=== PATIENT | male | born 1945 | race Hispanic/Latino ===

== ENCOUNTER 2018-01-23 09:32 | Inpatient (IN) | payer MEDICARE ==
[~2018-01-23] VITALS: Ht 172.7 cm; Wt 76.0 kg
[2018-01-23] MEDS ORDERED: IOPAMIDOL-370 75 ML VIAL IV ONE (10:41)
[2018-01-23] MEDS ORDERED: DIATR MEGLU/DIATRIZOATE SODIUM 30 ML BOTTLE ONE (10:51)
[2018-01-23] MEDS ORDERED: SODIUM CHLORIDE 0.9% 1000ML 1,000 ML IV ONE (10:53)
[2018-01-23] MEDS ORDERED: ONDANSETRON HCL MDV 20ML 2 MG/ML VIAL ONE (10:54)
[2018-01-23] MEDS ORDERED: MORPHINE SULFATE 4 MG/1ML SYG ONE (10:54)
[2018-01-23 10:57] LABS: BASOPHILS % (AUTO) 0.1 % (0.0-5.0); EOSINOPHILS % (AUTO) 0.2 % (0.0-8.0); LYMPHOCYTES % (AUTO) 17.6 % (21.0-51.0); MEAN CORPUSCULAR HEMOGLOBIN 31.1 pg (27.0-33.0); MEAN CORPUSCULAR HGB CONC 34.4 g/dL (32.0-36.0); MEAN CORPUSCULAR VOLUME 90.3 fL (79-99); NEUTROPHILS % (AUTO) 77.1 % (40.0-77.0); NUCLEATED RED BLOOD CELLS 0.1 % (0.0-0.19); PLATELET COUNT (AUTO) 187 K/uL (130-400); RED BLOOD CELL COUNT(AUTO) 4.43 MIL/uL (4.50-6.20); RED CELL DISTRIBUTION WIDTH 14.2 % (11.0-15.5); WHITE BLOOD COUNT (AUTO) 7.2 K/uL (4.8-10.8)
[2018-01-23 11:17] LABS: ALBUMIN 2.9 g/dL (3.5-5.0); BILIRUBIN,TOTAL 0.4 mg/dL (0.2-1.0); CREATININE 0.9 mg/dL (0.5-1.5); TOTAL PROTEIN, SERUM 5.8 g/dL (6.0-8.3)
[2018-01-23 11:20] LABS: POTASSIUM 2.6 mmol/L (3.5-5.1)
[2018-01-23 11:25] LABS: INR 0.96 (0.85-1.15); PARTIAL THROMBOPLASTIN TIME 23.6 SEC (26.3-35.5); PROTHROMBIN TIME 10.1 SEC (9.6-11.6)
[2018-01-23] MEDS ORDERED: POTASSIUM CHLORIDE 20 MEQ ERTAB PO ONE (11:29)
[2018-01-23 13:19] LABS: APPEARANCE,URINE SL CLOUDY (CLEAR); BILIRUBIN,URINE NEGATIVE (NEGATIVE); COLOR,URINE YELLOW (YELLOW); GLUCOSE, URINE (UA) NEGATIVE (NEGATIVE); KETONES,URINE NEGATIVE (NEGATIVE); LEUKOCYTE ESTERASE ,URINE TRACE (NEGATIVE); NITRATE,URINE NEGATIVE (NEGATIVE); OCCULT BLOOD,URINE NEGATIVE (NEGATIVE); PROTEIN,URINE NEGATIVE (NEGATIVE); UROBILINOGEN,URINE 0.2 mg/dL (0.2-1.0)
[2018-01-23 13:26] LABS: BACTERIA,URINE Many /HPF (None Seen); RBC,URINE 0-1 /HPF (0-1); SQUAMOUS EPITHELIAL CELL,UR Rare /HPF (0-2)
[2018-01-23] MEDS ORDERED: SODIUM CHLORIDE 0.9% 100 ML IV ONE (17:21)
[2018-01-23] MEDS ORDERED: MEROPENEM 500 MG VIAL ONE (17:21)
[2018-01-23 17:55] VITALS: BP 151/73
[2018-01-23] MEDS: MEROPENEM 500 MG VIAL IVP SCH (18:00)
[2018-01-23] MEDS ORDERED: MORPHINE SULFATE 2 MG/ML 1ML SYG IVP PRN (18:15)
[2018-01-23 20:00] VITALS: BP 132/73
[2018-01-24] VITALS: BP 131/62
[2018-01-24] MEDS: MEROPENEM 500 MG VIAL IVP SCH ×3 (01:59→17:45)
[2018-01-24 04:00] VITALS: BP 125/63
[2018-01-24 05:22] LABS: BASOPHILS % (AUTO) 0.1 % (0.0-5.0); EOSINOPHILS % (AUTO) 1.2 % (0.0-8.0); HEMATOCRIT 38.2 % (42-54); LYMPHOCYTES % (AUTO) 39.8 % (21.0-51.0); MEAN CORPUSCULAR HEMOGLOBIN 32.5 pg (27.0-33.0); MEAN CORPUSCULAR HGB CONC 35.7 g/dL (32.0-36.0); MEAN CORPUSCULAR VOLUME 90.9 fL (79-99); MONOCYTES % (AUTO) 7.1 % (3.0-13.0); NEUTROPHILS % (AUTO) 51.8 % (40.0-77.0); NUCLEATED RED BLOOD CELLS 0.1 % (0.0-0.19); PLATELET COUNT (AUTO) 177 K/uL (130-400); RED CELL DISTRIBUTION WIDTH 14.4 % (11.0-15.5); WHITE BLOOD COUNT (AUTO) 7.4 K/uL (4.8-10.8)
[2018-01-24 05:44] LABS: ALBUMIN 2.5 g/dL (3.5-5.0); BILIRUBIN,TOTAL 0.6 mg/dL (0.2-1.0); CREATININE 0.9 mg/dL (0.5-1.5); POTASSIUM 3.3 mmol/L (3.5-5.1); TOTAL PROTEIN, SERUM 5.3 g/dL (6.0-8.3)
[2018-01-24 07:59] VITALS: BP 119/72
[2018-01-24 11:30] VITALS: BP 153/84
[2018-01-24] MEDS ORDERED: FURO20TA6 PO (11:31)
[2018-01-24] MEDS ORDERED: METF850T2 PO (11:31)
[2018-01-24] MEDS ORDERED: K1015L PO (11:31)
[2018-01-24] MEDS ORDERED: AMLO10TA2 PO (11:31)
[2018-01-24] MEDS ORDERED: TRAM50TA4 PO (11:31)
[2018-01-24] MEDS ORDERED: GLIM4TAB3 PO (11:31)
[2018-01-24] MEDS ORDERED: LISI-613 PO (11:31)
[2018-01-24] MEDS ORDERED: DEXTROSE 50%-WATER 50 ML DISP.SYRIN IV PRN (12:30)
[2018-01-24] MEDS ORDERED: GLUCAGON 1MG KIT 1 MG ML IM PRN (12:30)
[2018-01-24 16:00] VITALS: BP 152/86
[2018-01-24] MEDS: INSULIN HUMULIN R 100 UNIT/ML 3ML SQ SCH ×2 (16:30→21:00)
[2018-01-24 19:45] VITALS: BP 128/78
[2018-01-25] VITALS (26 sets, daily range): BP systolic 113–147; BP diastolic 63–99
[2018-01-25] MEDS: MEROPENEM 500 MG VIAL IVP SCH ×2 (01:56→10:23)
[2018-01-25 05:01] LABS: HEMATOCRIT 43.3 % (42-54); MEAN CORPUSCULAR HEMOGLOBIN 31.5 pg (27.0-33.0); MEAN CORPUSCULAR VOLUME 90.2 fL (79-99); NUCLEATED RED BLOOD CELLS 0.1 % (0.0-0.19); PLATELET COUNT (AUTO) 207 K/uL (130-400); RED CELL DISTRIBUTION WIDTH 14.1 % (11.0-15.5); WHITE BLOOD COUNT (AUTO) 7.1 K/uL (4.8-10.8)
[2018-01-25 05:09] LABS: INR 1.01 (0.85-1.15); PROTHROMBIN TIME 10.6 SEC (9.6-11.6)
[2018-01-25 05:16] LABS: POTASSIUM 3.3 mmol/L (3.5-5.1)
[2018-01-25] MEDS: INSULIN HUMULIN R 100 UNIT/ML 3ML SQ SCH ×4 (05:48→21:24)
[2018-01-25] MEDS ORDERED: MORPHINE SULFATE 4 MG/1ML SYG ONE (07:44)
[2018-01-25] MEDS ORDERED: GLYCOPYRROLATE 0.2 MG/ML 5 ML VIAL ONE ×2 (09:31→11:43)
[2018-01-25] MEDS ORDERED: DEXAMETHASONE SOD PHOSPHATE 10MG/ML 1ML VIAL ONE (09:32)
[2018-01-25] MEDS ORDERED: LIDOCAINE PF 2% 5ML ABBOJECT ONE (09:32)
[2018-01-25] MEDS ORDERED: MIDAZOLAM HCL 1 MG/ML 2ML VIAL ONE (09:32)
[2018-01-25] MEDS ORDERED: FENTANYL CITRATE PF 50 MCG/1 ML 2ML VIAL ONE ×2 (09:33→11:43)
[2018-01-25] MEDS ORDERED: PROPOFOL 10 MG/ML 20ML VIAL IV ONE (09:33)
[2018-01-25] MEDS ORDERED: CALDOLOR 800MG+NS 250ML 250 ML IV ONE (11:40)
[2018-01-25] MEDS ORDERED: BUPIVACAINE/EPI/PF 0.25% 30ML VIAL IJ ONE (11:42)
[2018-01-25] MEDS ORDERED: NEOSTIGMINE METHYLSULFATE 1MG/ML IV ONE (11:42)
[2018-01-25] MEDS ORDERED: ROCURONIUM BROMIDE 10MG/1ML 5ML VL ONE ×2 (11:43→13:20)
[2018-01-25] MEDS ORDERED: SUCCINYLCHOLINE CHLORIDE 20 MG/ML 10 ML VIAL ONE (11:43)
[2018-01-25] MEDS ORDERED: ARTIFICIAL TEARS 3.5 GM OINTMENT ONE (13:20)
[2018-01-25] MEDS ORDERED: MEPERIDINE-PF 25 MG/ML SYG ONE (13:58)
[2018-01-25] MEDS ORDERED: TRAMADOL HCL 50 MG TABLET PO PRN (15:00)
[2018-01-25] MEDS ORDERED: ACETAMINOPHEN 325 MG TAB PO PRN (15:00)
[2018-01-26 00:15] VITALS: BP 156/85
[2018-01-26 04:00] VITALS: BP 153/91
[2018-01-26 05:18] LABS: BASOPHILS % (AUTO) 0.1 % (0.0-5.0); HEMATOCRIT 42.9 % (42-54); LYMPHOCYTES % (AUTO) 8.1 % (21.0-51.0); MEAN CORPUSCULAR HEMOGLOBIN 31.6 pg (27.0-33.0); MEAN CORPUSCULAR HGB CONC 35.2 g/dL (32.0-36.0); MEAN CORPUSCULAR VOLUME 89.9 fL (79-99); MONOCYTES % (AUTO) 6.8 % (3.0-13.0); PLATELET COUNT (AUTO) 223 K/uL (130-400); RED BLOOD CELL COUNT(AUTO) 4.77 MIL/uL (4.50-6.20); RED CELL DISTRIBUTION WIDTH 14.4 % (11.0-15.5); WHITE BLOOD COUNT (AUTO) 12.5 K/uL (4.8-10.8)
[2018-01-26 05:27] LABS: CREATININE 1.2 mg/dL (0.5-1.5); POTASSIUM 3.7 mmol/L (3.5-5.1)
[2018-01-26] MEDS: INSULIN HUMULIN R 100 UNIT/ML 3ML SQ SCH ×4 (07:05→20:36)
[2018-01-26 08:08] VITALS: BP 153/88
[2018-01-26 11:51] VITALS: BP 130/82
[2018-01-26 16:25] VITALS: BP 169/94
[2018-01-26 19:10] VITALS: BP 125/77
[2018-01-27 00:02] VITALS: BP 132/80
[2018-01-27 05:04] LABS: BASOPHILS % (AUTO) 0.4 % (0.0-5.0); HEMATOCRIT 37.8 % (42-54); LYMPHOCYTES % (AUTO) 8.9 % (21.0-51.0); MEAN CORPUSCULAR HEMOGLOBIN 31.2 pg (27.0-33.0); MEAN CORPUSCULAR HGB CONC 34.7 g/dL (32.0-36.0); MEAN CORPUSCULAR VOLUME 90.1 fL (79-99); MONOCYTES % (AUTO) 7.6 % (3.0-13.0); NEUTROPHILS % (AUTO) 83.1 % (40.0-77.0); PLATELET COUNT (AUTO) 183 K/uL (130-400); RED BLOOD CELL COUNT(AUTO) 4.19 MIL/uL (4.50-6.20); RED CELL DISTRIBUTION WIDTH 14.6 % (11.0-15.5)
[2018-01-27 05:36] LABS: CREATININE 0.9 mg/dL (0.5-1.5); POTASSIUM 3.6 mmol/L (3.5-5.1)
[2018-01-27] MEDS: INSULIN HUMULIN R 100 UNIT/ML 3ML SQ SCH (05:59)
[2018-01-27 07:42] VITALS: BP 128/79
[2018-01-27 11:18] VITALS: BP 157/90
== END 2018-01-27 12:15 | disposition home or self-care (01) | DRG 351 ==
LOC: EDH 09:32 → EDHIP 16:20 → 4CH 17:46
PROVIDERS: ADMIT Internal Medicine Nephrology; ATTEND Internal Medicine Nephrology
PROC: 0YU50JZ Supplement Right Inguinal Region with Synthetic Substitute, Open Approach (ICD-10-PCS; principal; 2018-01-25 12:24)
DX: K40.30 Unilateral inguinal hernia, with obstruction, without gangrene, not specified as recurrent (principal); E44.0 Moderate protein-calorie malnutrition; E11.9 Type 2 diabetes mellitus without complications; D72.829 Elevated white blood cell count, unspecified; E78.5 Hyperlipidemia, unspecified; I10 Essential (primary) hypertension; Z82.49 Family history of ischemic heart disease and other diseases of the circulatory system; Z83.3 Family history of diabetes mellitus; Z86.73 Personal history of transient ischemic attack (TIA), and cerebral infarction without residual deficits; Z28.21 Immunization not carried out because of patient refusal
CPT/HCPCS: 36415; 74177; 80048; 80053; 81001; 82948; 83690; 85025; 85027; 85610; 85730; 88302; A4218; A4344; C1781; J0330; J1100; J1741; J1815; J2001; J2175; J2185; J2250; J2270; J2704; J2710; J3010; J3490; J7030; Q9963; Q9967

== ENCOUNTER 2021-02-06 11:46 | Emergency (ER) | payer MEDICARE ==
[~2021-02-06 11:46] MED LIST: AMLO-258 PO; GLIM4TAB36 PO; LISI20TA24 PO; METF-445 PO; METR250T PO; OSEL30CA PO; POTA20LI PO; TRAM50TA4 PO
[2021-02-06] MEDS ORDERED: INSULIN HUMULIN R 100 UNIT/ML 3ML ONE (12:14)
[2021-02-06] MEDS ORDERED: SODIUM CHLORIDE 0.9% 1000ML 1,000 ML IV ONE (12:14)
[2021-02-06 12:21] LABS: APPEARANCE,URINE CLEAR (CLEAR); BILIRUBIN,URINE NEGATIVE (NEGATIVE); COLOR,URINE YELLOW (YELLOW); GLUCOSE, URINE (UA) >=1000 mg/dL (NEGATIVE); KETONES,URINE NEGATIVE (NEGATIVE); LEUKOCYTE ESTERASE ,URINE TRACE (NEGATIVE); NITRATE,URINE NEGATIVE (NEGATIVE); OCCULT BLOOD,URINE MODERATE (NEGATIVE); PROTEIN,URINE NEGATIVE (NEGATIVE); UROBILINOGEN,URINE 0.2 mg/dL (0.2-1.0)
[2021-02-06 12:24] LABS: BASOPHILS % (AUTO) 0.1 % (0.0-5.0); EOSINOPHILS % (AUTO) 0.1 % (0.0-8.0); HEMATOCRIT 48.1 % (42-54); LYMPHOCYTES % (AUTO) 4.9 % (21.0-51.0); MEAN CORPUSCULAR HEMOGLOBIN 29.8 pg (27.0-33.0); MEAN CORPUSCULAR HGB CONC 33.9 g/dL (32.0-36.0); MEAN CORPUSCULAR VOLUME 87.9 fL (79-99); NEUTROPHILS % (AUTO) 87.4 % (40.0-77.0); PLATELET COUNT (AUTO) 221 K/uL (130-400); RED BLOOD CELL COUNT(AUTO) 5.47 MIL/uL (4.50-6.20); RED CELL DISTRIBUTION WIDTH 13.2 % (11.0-15.5); WHITE BLOOD COUNT (AUTO) 13.7 K/uL (4.8-10.8)
[2021-02-06 12:54] LABS: ALBUMIN 2.4 g/dL (3.5-5.0); BILIRUBIN,TOTAL 0.7 mg/dL (0.2-1.0); CREATININE 1.3 mg/dL (0.5-1.5); POTASSIUM 3.9 mmol/L (3.5-5.1); TOTAL PROTEIN, SERUM 5.7 g/dL (6.0-8.3)
[2021-02-06 13:03] LABS: BACTERIA,URINE Moderate /HPF (None Seen); RBC,URINE 0-1 /HPF (0-1); SQUAMOUS EPITHELIAL CELL,UR Rare /HPF (0-2); WBC,URINE 26-50 /HPF (0-1)
== END 2021-02-06 14:02 | disposition home or self-care (01) ==
LOC: EDH 11:46
DX: R35.8 Other polyuria (principal); E11.65 Type 2 diabetes mellitus with hyperglycemia; I10 Essential (primary) hypertension; E78.5 Hyperlipidemia, unspecified; Z72.0 Tobacco use
CPT/HCPCS: 36415; 80053; 81001; 82948 ×2; 85025; 87077; 87088; 87186; 96361; 96374; 99283; J1815; J7030

== ENCOUNTER 2021-02-15 14:33 | Inpatient (IN) | payer MEDICARE ==
[~2021-02-15] VITALS: Ht 167.6 cm; Wt 94.8 kg
[2021-02-15] MEDS: 0.9%NACL 1000ML 1,000 ML IV SCH (03:00)
[2021-02-15] MEDS ORDERED: CEFTRIAXONE 1G VIAL ONE (15:45)
[2021-02-15] MEDS ORDERED: 0.9% NACL 500ML IV.SOLN 500 ML IV ONE (15:45)
[2021-02-15 15:52] LABS: APPEARANCE,URINE CLOUDY (CLEAR); BILIRUBIN,URINE NEGATIVE (NEGATIVE); COLOR,URINE YELLOW (YELLOW); GLUCOSE, URINE (UA) NEGATIVE (NEGATIVE); KETONES,URINE NEGATIVE (NEGATIVE); LEUKOCYTE ESTERASE ,URINE MODERATE (NEGATIVE); NITRATE,URINE NEGATIVE (NEGATIVE); OCCULT BLOOD,URINE LARGE (NEGATIVE); PH,URINE >=9.0 (5.0-8.0); PROTEIN,URINE TRACE mg/dL (NEGATIVE)
[2021-02-15 15:54] LABS: BASOPHILS % (AUTO) 0.3 % (0.0-5.0); EOSINOPHILS % (AUTO) 2.8 % (0.0-8.0); HEMATOCRIT 46.6 % (42-54); LYMPHOCYTES % (AUTO) 2.5 % (21.0-51.0); MEAN CORPUSCULAR HEMOGLOBIN 30.6 pg (27.0-33.0); MEAN CORPUSCULAR HGB CONC 33.3 g/dL (32.0-36.0); MEAN CORPUSCULAR VOLUME 91.9 fL (79-99); MONOCYTES % (AUTO) 0.9 % (3.0-13.0); NEUTROPHILS % (AUTO) 92.5 % (40.0-77.0); PLATELET COUNT (AUTO) 82 K/uL (130-400); RED BLOOD CELL COUNT(AUTO) 5.07 MIL/uL (4.50-6.20); RED CELL DISTRIBUTION WIDTH 14.6 % (11.0-15.5); WHITE BLOOD COUNT (AUTO) 12.8 K/uL (4.8-10.8)
[2021-02-15 16:04] LABS: INR 1.02 (0.85-1.15); PROTHROMBIN TIME 11.1 SEC (9.6-11.6)
[2021-02-15 16:05] LABS: PARTIAL THROMBOPLASTIN TIME 23.7 SEC (26.3-35.5)
[2021-02-15 16:06] LABS: AMORPHOUS SEDIMENT,UR Few /LPF (None Seen); BACTERIA,URINE Moderate /HPF (None Seen); SQUAMOUS EPITHELIAL CELL,UR Rare /HPF (0-2)
[2021-02-15 16:08] LABS: CARBON DIOXIDE 27 mmol/L (21-32); CHLORIDE 102 mmol/L (101-111); CREATININE 1.5 mg/dL (0.5-1.5); GLOMERULAR FILTR. RATE CALC 48 mL/min (>60); GLUCOSE,RANDOM 156 mg/dL (70-105); POTASSIUM 4.5 mmol/L (3.5-5.1); SODIUM SERUM 139 mmol/L (136-145); UREA NITROGEN, BLOOD 25 mg/dL (7-18)
[2021-02-15] MEDS ORDERED: 0.9%NACL 1000ML 1,000 ML IV ONE (16:17)
[2021-02-15] MEDS ORDERED: AZITHROMYCIN 500MG+NS 250ML 250 ML IV ONE (16:18)
[2021-02-15 16:20] LABS: ALANINE AMINOTRANSFERASE 41 U/L (12-78); ALBUMIN 2.5 g/dL (3.5-5.0); ASPARTATE AMINOTRANSFERASE 16 U/L (10-37); B-TYPE NATRIURETIC PEPTIDE 353 pg/mL (0-100); BILIRUBIN,TOTAL 1.1 mg/dL (0.2-1.0); CREATINE KINASE, TOTAL 22 U/L (21-232); MYOGLOBIN 32 ng/mL (10-92); TOTAL PROTEIN, SERUM 5.9 g/dL (6.0-8.3); TROPONIN I < 0.04 ng/mL (0.00-0.06)
[2021-02-15] MEDS ORDERED: ACETAMINOPHEN 650 MG/20.3 ML UDCUP ONE (17:04)
[2021-02-15] MEDS ORDERED: LACTULOSE 20 GM/30 ML UDCUP PO PRN (18:45)
[2021-02-15] MEDS ORDERED: NITROGLYCERIN 0.4 MG SL TAB SL PRN (18:45)
[2021-02-15] MEDS ORDERED: BENZONATATE 100 MG CAPSULE PO PRN (18:45)
[2021-02-15] MEDS ORDERED: ONDANSETRON 4MG INJ IV PRN (18:45)
[2021-02-15] MEDS ORDERED: ACETAMINOPHEN 325 MG TAB PO PRN ×2 (18:45)
[2021-02-15] MEDS ORDERED: DEXTROSE 50%-WATER 50 ML DISP.SYRIN IV PRN (19:00)
[2021-02-15] MEDS ORDERED: GLUCAGON 1MG KIT 1 MG ML IM PRN (19:00)
[2021-02-15] MEDS ORDERED: LABETALOL 20MG SYG IV PRN (19:00)
[2021-02-15] MEDS: IPRATROPIUM/ALBUTEROL SULFATE 3 ML SOLUTION IH SCH (21:43)
[2021-02-15] MEDS ORDERED: SOLU-MEDROL 40MG VIAL ONE (22:15)
[2021-02-15] MEDS ORDERED: NOREPINEPHRIN 4MG/NS 250ML 250 ML IV ONE (22:17)
[2021-02-16] VITALS (33 sets, daily range): BP systolic 95–147; BP diastolic 52–92
[2021-02-16] MEDS: IPRATROPIUM/ALBUTEROL SULFATE 3 ML SOLUTION IH SCH ×4 (02:00→18:21)
[2021-02-16] MEDS: 0.9%NACL 1000ML 1,000 ML IV SCH ×2 (05:12→13:09)
[2021-02-16] MEDS: INSULIN HUMULIN R 100 UNIT/ML 3ML SQ SCH ×5 (05:20→21:40)
[2021-02-16] MEDS: SOLU-MEDROL 125MG VIAL IV SCH ×3 (05:20→06:29)
[2021-02-16] MEDS: FAMOTIDINE 20MG VIAL IV SCH (08:40)
[2021-02-16] MEDS ORDERED: ENOXAPARIN SODIUM 40 MG/0.4 ML SYRINGE SQ SCH (09:00)
[2021-02-16] MEDS ORDERED: RISPERIDONE 0.5 MG TABLET PO SCH (09:00)
[2021-02-16 10:01] LABS: HEMATOCRIT 41.8 % (42-54); MEAN CORPUSCULAR HEMOGLOBIN 30.5 pg (27.0-33.0); MEAN CORPUSCULAR HGB CONC 33.7 g/dL (32.0-36.0); MEAN CORPUSCULAR VOLUME 90.3 fL (79-99); PLATELET COUNT (AUTO) 42 K/uL (130-400); RED BLOOD CELL COUNT(AUTO) 4.63 MIL/uL (4.50-6.20); RED CELL DISTRIBUTION WIDTH 14.7 % (11.0-15.5); WHITE BLOOD COUNT (AUTO) 23.7 K/uL (4.8-10.8)
[2021-02-16 10:08] LABS: CREATININE 1.4 mg/dL (0.5-1.5); POTASSIUM 4.4 mmol/L (3.5-5.1)
[2021-02-16] MEDS ORDERED: SOLU-MEDROL 125MG VIAL IV SCH (12:45)
[2021-02-16] MEDS: SOLU-MEDROL 40MG VIAL IVP SCH ×2 (13:45→19:56)
[2021-02-16] MEDS: CEFTRIAXONE 1G VIAL IV SCH (14:35)
[2021-02-16] MEDS: ZIPRASIDONE MESYLATE 20 MG/VIAL IM PRN ×2 (14:36→21:29)
[2021-02-16] MEDS ORDERED: CEFTRIAXONE 1G VIAL IV SCH (15:00)
[2021-02-16] MEDS ORDERED: AZITHROMYCIN 500MG+NS 250ML 250 ML IV SCH (16:00)
[2021-02-16] MEDS ORDERED: MEMANTINE HCL 5 MG TABLET PO SCH (16:30)
[2021-02-16] MEDS: BUSPIRONE HCL 5 MG TABLET PO SCH (19:57)
[2021-02-16] MEDS: RISPERIDONE 0.5 MG TABLET PO PRN (19:57)
[2021-02-16] MEDS: DONEPEZIL HCL 5 MG TAB PO SCH (19:57)
[2021-02-16] MEDS: GUAIFENESIN-DM 200/20 MG 10 ML PO PRN (21:57)
[2021-02-16] MEDS ORDERED: FUROSEMIDE 40MG VIAL IV SCH (23:45)
[2021-02-17] VITALS (10 sets, daily range): BP systolic 104–184; BP diastolic 59–100
[2021-02-17] MEDS: IPRATROPIUM/ALBUTEROL SULFATE 3 ML SOLUTION IH SCH ×4 (00:02→18:00)
[2021-02-17] MEDS: GUAIFENESIN-DM 200/20 MG 10 ML PO PRN (01:39)
[2021-02-17] MEDS: ZIPRASIDONE MESYLATE 20 MG/VIAL IM PRN ×3 (02:21→16:34)
[2021-02-17] MEDS: SOLU-MEDROL 40MG VIAL IVP SCH (02:22)
[2021-02-17 04:21] LABS: HEMATOCRIT 37.8 % (42-54); MEAN CORPUSCULAR HEMOGLOBIN 30.3 pg (27.0-33.0); MEAN CORPUSCULAR HGB CONC 34.7 g/dL (32.0-36.0); MEAN CORPUSCULAR VOLUME 87.5 fL (79-99); RED BLOOD CELL COUNT(AUTO) 4.32 MIL/uL (4.50-6.20); RED CELL DISTRIBUTION WIDTH 14.6 % (11.0-15.5); WHITE BLOOD COUNT (AUTO) 17.9 K/uL (4.8-10.8)
[2021-02-17 04:32] LABS: CREATININE 1.3 mg/dL (0.5-1.5); POTASSIUM 3.3 mmol/L (3.5-5.1)
[2021-02-17] MEDS: LIDOCAINE HCL 1% 20 ML VIAL INJ SCH (06:15)
[2021-02-17] MEDS ORDERED: POTASSIUM CHLORIDE 10MEQ/100ML 10 MEQ/100 ML ML IV SCH (06:15)
[2021-02-17] MEDS: FAMOTIDINE 20MG VIAL IV SCH (08:38)
[2021-02-17] MEDS: BUSPIRONE HCL 5 MG TABLET PO SCH ×2 (08:38→22:11)
[2021-02-17] MEDS: INSULIN HUMULIN R 100 UNIT/ML 3ML SQ SCH ×4 (08:40→22:20)
[2021-02-17] MEDS: CEFTRIAXONE 1G VIAL IV SCH (15:03)
[2021-02-17] MEDS ORDERED: INSULIN GLARGINE 100 UNITS/ML 10 ML VIAL SQ SCH (21:00)
[2021-02-17] MEDS: DONEPEZIL HCL 5 MG TAB PO SCH (22:11)
[2021-02-17] MEDS: HYDROXYZINE 25 MG TABLET PO SCH (22:11)
[2021-02-17] MEDS: RISPERIDONE 0.5 MG TABLET PO PRN (22:11)
[2021-02-17] MEDS: INSULIN GLARGINE 100 UNITS/ML 10 ML VIAL SQ SCH (22:22)
[2021-02-18] VITALS: BP 155/84
[2021-02-18 04:00] VITALS: BP 167/89
[2021-02-18] MEDS: ZIPRASIDONE MESYLATE 20 MG/VIAL IM PRN (04:39)
[2021-02-18 05:25] LABS: BASOPHILS % (AUTO) 0.3 % (0.0-5.0); EOSINOPHILS % (AUTO) 0.7 % (0.0-8.0); HEMATOCRIT 43.3 % (42-54); LYMPHOCYTES % (AUTO) 2.8 % (21.0-51.0); MEAN CORPUSCULAR HEMOGLOBIN 29.4 pg (27.0-33.0); MEAN CORPUSCULAR HGB CONC 33.7 g/dL (32.0-36.0); MEAN CORPUSCULAR VOLUME 87.3 fL (79-99); MONOCYTES % (AUTO) 3.6 % (3.0-13.0); NEUTROPHILS % (AUTO) 92.2 % (40.0-77.0); PLATELET COUNT (AUTO) 19 K/uL (130-400); RED BLOOD CELL COUNT(AUTO) 4.96 MIL/uL (4.50-6.20); RED CELL DISTRIBUTION WIDTH 14.4 % (11.0-15.5); WHITE BLOOD COUNT (AUTO) 17.7 K/uL (4.8-10.8)
[2021-02-18] MEDS: LIDOCAINE HCL 1% 20 ML VIAL INJ SCH (05:39)
[2021-02-18] MEDS: INSULIN HUMULIN R 100 UNIT/ML 3ML SQ SCH ×4 (05:39→21:52)
[2021-02-18 05:53] LABS: ALBUMIN 2.2 g/dL (3.5-5.0); BILIRUBIN,TOTAL 0.9 mg/dL (0.2-1.0); TOTAL PROTEIN, SERUM 5.7 g/dL (6.0-8.3)
[2021-02-18] MEDS: MEMANTINE HCL 5 MG TABLET PO SCH (09:07)
[2021-02-18] MEDS: PANTOPRAZOLE 40 MG TAB DR PO SCH (09:07)
[2021-02-18] MEDS: HYDROXYZINE 25 MG TABLET PO SCH ×2 (09:07→21:44)
[2021-02-18] MEDS: CITALOPRAM 20 MG TABLET PO SCH (09:07)
[2021-02-18] MEDS: KCL 20 MEQ ERTAB PO SCH (09:08)
[2021-02-18] MEDS: BUSPIRONE HCL 5 MG TABLET PO SCH ×3 (09:08→21:44)
[2021-02-18] MEDS: CEFTRIAXONE 1G VIAL IV SCH (14:44)
[2021-02-18 17:33] VITALS: BP 132/87
[2021-02-18 20:00] VITALS: BP 158/76
[2021-02-18 20:35] LABS: INR 1.1 (0.85-1.15); PROTHROMBIN TIME 11.9 SEC (9.6-11.6)
[2021-02-18 20:37] LABS: PARTIAL THROMBOPLASTIN TIME 24.5 SEC (26.3-35.5)
[2021-02-18] MEDS: DONEPEZIL HCL 5 MG TAB PO SCH (21:44)
[2021-02-18] MEDS: INSULIN GLARGINE 100 UNITS/ML 10 ML VIAL SQ SCH (21:51)
[2021-02-19] VITALS: BP 152/80
[2021-02-19 04:00] VITALS: BP 143/73
[2021-02-19] MEDS: LIDOCAINE HCL 1% 20 ML VIAL INJ SCH (04:53)
[2021-02-19] MEDS: INSULIN HUMULIN R 100 UNIT/ML 3ML SQ SCH ×4 (05:34→21:12)
[2021-02-19 05:57] LABS: HEMATOCRIT 38.9 % (42-54); MEAN CORPUSCULAR HEMOGLOBIN 29.2 pg (27.0-33.0); MEAN CORPUSCULAR HGB CONC 32.9 g/dL (32.0-36.0); MEAN CORPUSCULAR VOLUME 88.8 fL (79-99); RED BLOOD CELL COUNT(AUTO) 4.38 MIL/uL (4.50-6.20); RED CELL DISTRIBUTION WIDTH 14.2 % (11.0-15.5); WHITE BLOOD COUNT (AUTO) 7.8 K/uL (4.8-10.8)
[2021-02-19 06:07] LABS: CREATININE 0.8 mg/dL (0.5-1.5); POTASSIUM 3.1 mmol/L (3.5-5.1)
[2021-02-19] MEDS: KCL 20 MEQ ERTAB PO SCH ×2 (08:15→10:25)
[2021-02-19] MEDS: MEMANTINE HCL 5 MG TABLET PO SCH (09:06)
[2021-02-19] MEDS: CITALOPRAM 20 MG TABLET PO SCH (09:06)
[2021-02-19] MEDS: HYDROXYZINE 25 MG TABLET PO SCH ×2 (09:06→21:06)
[2021-02-19] MEDS: BUSPIRONE HCL 5 MG TABLET PO SCH ×3 (09:06→21:06)
[2021-02-19] MEDS: PANTOPRAZOLE 40 MG TAB DR PO SCH (09:07)
[2021-02-19 09:18] VITALS: BP 159/72
[2021-02-19 12:53] VITALS: BP 155/81
[2021-02-19] MEDS: CEFTRIAXONE 1G VIAL IV SCH (14:20)
[2021-02-19 17:38] VITALS: BP 164/75
[2021-02-19 20:00] VITALS: BP 172/92
[2021-02-19] MEDS: DONEPEZIL HCL 5 MG TAB PO SCH (21:06)
[2021-02-19] MEDS: INSULIN GLARGINE 100 UNITS/ML 10 ML VIAL SQ SCH (21:10)
[2021-02-20] VITALS (7 sets, daily range): BP systolic 134–165; BP diastolic 57–85
[2021-02-20 05:12] LABS: HEMATOCRIT 38.3 % (42-54); MEAN CORPUSCULAR HEMOGLOBIN 29.9 pg (27.0-33.0); MEAN CORPUSCULAR HGB CONC 34.5 g/dL (32.0-36.0); MEAN CORPUSCULAR VOLUME 86.7 fL (79-99); RED BLOOD CELL COUNT(AUTO) 4.42 MIL/uL (4.50-6.20); WHITE BLOOD COUNT (AUTO) 4.7 K/uL (4.8-10.8)
[2021-02-20 05:42] LABS: CREATININE 0.9 mg/dL (0.5-1.5); POTASSIUM 3.2 mmol/L (3.5-5.1)
[2021-02-20] MEDS: INSULIN HUMULIN R 100 UNIT/ML 3ML SQ SCH ×4 (06:01→20:42)
[2021-02-20] MEDS: LIDOCAINE HCL 1% 20 ML VIAL INJ SCH (06:01)
[2021-02-20] MEDS: KCL 20 MEQ ERTAB PO SCH (07:10)
[2021-02-20] MEDS: HYDROXYZINE 25 MG TABLET PO SCH ×2 (08:30→20:01)
[2021-02-20] MEDS: BUSPIRONE HCL 5 MG TABLET PO SCH ×3 (08:30→20:01)
[2021-02-20] MEDS: CITALOPRAM 20 MG TABLET PO SCH (08:30)
[2021-02-20] MEDS: MEMANTINE HCL 5 MG TABLET PO SCH (08:34)
[2021-02-20] MEDS: PANTOPRAZOLE 40 MG TAB DR PO SCH (08:35)
[2021-02-20] MEDS ORDERED: AMLODIPINE 5 MG TAB PO SCH (09:00)
[2021-02-20] MEDS ORDERED: IPRATROPIUM 0.5 MG/2.5 ML INH IH SCH (12:00)
[2021-02-20] MEDS ORDERED: IPRATROPIUM/ALBUTEROL SULFATE 3 ML SOLUTION IH PRN (12:45)
[2021-02-20] MEDS: CEFTRIAXONE 1G VIAL IV SCH (15:28)
[2021-02-20] MEDS ORDERED: BUDESONIDE 0.5 MG/2 ML INH IH SCH (18:00)
[2021-02-20] MEDS ORDERED: ATOR20TA65 PO (19:37)
[2021-02-20] MEDS ORDERED: AMLO-257 PO (19:37)
[2021-02-20] MEDS ORDERED: GABA-529 PO (19:37)
[2021-02-20] MEDS ORDERED: BUSP5TAB3 PO (19:37)
[2021-02-20] MEDS ORDERED: ALPR0.255 PO (19:37)
[2021-02-20] MEDS ORDERED: MEMA10TA11 PO (19:37)
[2021-02-20] MEDS ORDERED: MIRA25TA PO (19:37)
[2021-02-20] MEDS ORDERED: LISI30TA4 PO (19:37)
[2021-02-20] MEDS ORDERED: DONE5TAB33 PO (19:37)
[2021-02-20] MEDS: DONEPEZIL HCL 5 MG TAB PO SCH (20:01)
[2021-02-20] MEDS: INSULIN GLARGINE 100 UNITS/ML 10 ML VIAL SQ SCH (20:44)
[2021-02-21 04:00] VITALS: BP 148/70
[2021-02-21 05:31] LABS: BASOPHILS % (AUTO) 0.2 % (0.0-5.0); HEMATOCRIT 41.4 % (42-54); LYMPHOCYTES % (AUTO) 11.7 % (21.0-51.0); MEAN CORPUSCULAR HEMOGLOBIN 28.9 pg (27.0-33.0); MEAN CORPUSCULAR HGB CONC 33.3 g/dL (32.0-36.0); MEAN CORPUSCULAR VOLUME 86.6 fL (79-99); MONOCYTES % (AUTO) 7.3 % (3.0-13.0); PLATELET COUNT (AUTO) 78 K/uL (130-400); RED BLOOD CELL COUNT(AUTO) 4.78 MIL/uL (4.50-6.20); RED CELL DISTRIBUTION WIDTH 13.4 % (11.0-15.5); WHITE BLOOD COUNT (AUTO) 6.6 K/uL (4.8-10.8)
[2021-02-21] MEDS: LIDOCAINE HCL 1% 20 ML VIAL INJ SCH (05:48)
[2021-02-21 05:55] LABS: ALBUMIN 2.1 g/dL (3.5-5.0); POTASSIUM 3.8 mmol/L (3.5-5.1); TOTAL PROTEIN, SERUM 5.1 g/dL (6.0-8.3)
[2021-02-21] MEDS: INSULIN HUMULIN R 100 UNIT/ML 3ML SQ SCH ×3 (06:47→18:22)
[2021-02-21 07:53] VITALS: BP 156/74
[2021-02-21] MEDS ORDERED: AMLODIPINE 5 MG TAB PO SCH (09:00)
[2021-02-21] MEDS: HYDROXYZINE 25 MG TABLET PO SCH (09:06)
[2021-02-21] MEDS: MEMANTINE HCL 5 MG TABLET PO SCH (09:06)
[2021-02-21] MEDS: BUSPIRONE HCL 5 MG TABLET PO SCH ×2 (09:06→13:24)
[2021-02-21] MEDS: PANTOPRAZOLE 40 MG TAB DR PO SCH (09:06)
[2021-02-21] MEDS: CITALOPRAM 20 MG TABLET PO SCH (09:06)
[2021-02-21] MEDS: KCL 20 MEQ ERTAB PO SCH (09:08)
[2021-02-21 11:44] VITALS: BP 144/80
[2021-02-21] MEDS: CEFTRIAXONE 1G VIAL IV SCH (14:37)
[2021-02-21 15:51] VITALS: BP 121/69
[2021-05-04] MEDS ORDERED: GLIM4TAB36 PO (14:58)
[2021-05-04] MEDS ORDERED: FAMO20TA8 PO (14:58)
[2021-05-04] MEDS ORDERED: MERO500V23 IV (14:58)
== END 2021-02-21 20:02 | DRG 871 ==
LOC: EDH 14:33 → EDHIP 18:00 → OBSVTOIN 18:00 → 2BH 02-16 01:16 → 3AH 02-17 13:35 → 3DH 02-17 18:00
PROVIDERS: ADMIT Internal Medicine Critical Care Medicine; ATTEND Internal Medicine Critical Care Medicine
PROC: 30233R1 Transfusion of Nonautologous Platelets into Peripheral Vein, Percutaneous Approach (ICD-10-PCS; 2021-02-19)
PROC: 02HV33Z Insertion of Infusion Device into Superior Vena Cava, Percutaneous Approach (ICD-10-PCS; principal; 2021-02-20)
PROC: B548ZZA Ultrasonography of Superior Vena Cava, Guidance (ICD-10-PCS; 2021-02-20)
DX: A41.50 Gram-negative sepsis, unspecified (principal); J18.9 Pneumonia, unspecified organism; R65.21 Severe sepsis with septic shock; G92 Toxic encephalopathy; I50.33 Acute on chronic diastolic (congestive) heart failure; N39.0 Urinary tract infection, site not specified; J98.11 Atelectasis; D69.6 Thrombocytopenia, unspecified; E86.0 Dehydration; I11.0 Hypertensive heart disease with heart failure; E11.9 Type 2 diabetes mellitus without complications; E78.5 Hyperlipidemia, unspecified; F03.90 Unspecified dementia, unspecified severity, without behavioral disturbance, psychotic disturbance, mood disturbance, and anxiety; E66.9 Obesity, unspecified; F32.9 Major depressive disorder, single episode, unspecified; Z20.822 Contact with and (suspected) exposure to COVID-19; F41.1 Generalized anxiety disorder; Z86.73 Personal history of transient ischemic attack (TIA), and cerebral infarction without residual deficits; Z68.35 Body mass index [BMI] 35.0-35.9, adult; Z87.440 Personal history of urinary (tract) infections; Z79.899 Other long term (current) drug therapy; Z79.4 Long term (current) use of insulin
CPT/HCPCS: 36415; 36430; 36600; 71045; 80048; 80053; 81001; 82550; 82948; 83605; 83735; 83874; 83880; 84132; 84145; 84484; 85025; 85027; 85378; 85384; 85610; 85730; 86140; 86850; 86900; 86901; 87040; 87077; 87088; 87186; 87426; 87804; 92610; 93005; 93306; 93356; 94664; C1894; G0378; J0456; J0696; J1650; J1815; J1940; J2920; J2930; J3486; J3490; J7030; J7040; P9034; U0003